=== PATIENT | female | born 2000 | race Two or more races ===

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

== ENCOUNTER 2019-02-06 04:01 | Inpatient (IN) | payer SELFPAY ==
[~2019-02-06] VITALS: Ht 157.5 cm; Wt 72.6 kg
[2019-02-06] VITALS (15 sets, daily range): BP systolic 97–116; BP diastolic 47–68
[2019-02-06 05:06] LABS: Basophils # (auto) 0 uL; Basophils % (auto) 0.1 % (0.0-2.0); Eosinophils # (auto) 0.1 uL; Eosinophils % (auto) 0.9 % (0.0-7.0); Hematocrit 38.3 % (36.0-46.0); Hemoglobin 12.8 g/dL (12.2-16.2); Lymphocytes # (auto) 1.2 uL; Lymphocytes % (auto) 18.4 % (10.0-50.0); Mean Corpuscular Hemoglobin 30.4 pg (28.0-32.0); Mean Corpuscular Hgb Conc. 33.4 g/dL (32.0-36.0); Monocytes # (auto) 0.8 uL; Monocytes % (auto) 12.4 % (0.0-12.0); Neutrophils # (auto) 4.3 uL; Neutrophils % (auto) 68.2 % (37.0-80.0); Platelet Count (auto) 169 10^3/uL (140-450); Red Blood Cells 4.21 10^6/uL (4.0-5.20); Red Cell Distribution Width 13.2 % (11.8-14.3); White Blood Cell 6.3 10^3/uL (4.4-10.8)
[2019-02-06 05:24] LABS: Albumin 2.4 g/dL (3.4-5.0); BUN/Creatinine Ratio 19.5; Calcium 8.6 mg/dL (8.5-10.1); Potassium 3.8 mmol/L (3.5-5.1)
[2019-02-06 05:25] LABS: Bilirubin, Total 0.3 mg/dL (0.2-1.0); Total Protein 6.4 g/dL (6.4-8.2)
[2019-02-06 05:26] LABS: INR 0.86 (0.9-1.15); Partial Thromboplastin Time 26.9 sec (23.64-32.05)
[2019-02-06 05:53] LABS: Urine Bacteria MANY /hpf (None Seen); Urine Blood Negative /uL (Negative); Urine Specific Gravity 1.006 (1.001-1.035); Urine WBC 34 /hpf (0 - 5)
[2019-02-06] MEDS ORDERED: TETRACAINE 1% INJ 2 ML VIAL IJ ONE (09:17)
[2019-02-06] MEDS ORDERED: LACT. RINGERS/OXYTOCIN 20UNITS 1,000 ML IV SCH (10:14)
[2019-02-06] MEDS ORDERED: diphenhdrAMINE HCL 50 MG/1 ML VL IV PRN (10:15)
[2019-02-06] MEDS ORDERED: MORPHINE SULFATE 4 MG/ML SYR/VIAL IV PRN ×2 (10:15→21:30)
[2019-02-06] MEDS ORDERED: ceFAZolin 1GM/50ML 50 ML IV SCH (10:15)
[2019-02-06] MEDS ORDERED: KETOROLAC TROMETH 30 MG/ML 1ML VIAL IV PRN ×2 (10:15)
[2019-02-06] MEDS ORDERED: METOCLOPRAMIDE HCL 5MG/ml INJ 2ml VIAL IV ONE (10:15)
[2019-02-06] MEDS ORDERED: ONDANSETRON HCL 4 MG/2 ML VIAL IV PRN (10:15)
[2019-02-06] MEDS ORDERED: KETOROLAC TROMETH 30 MG/ML 1ML VIAL IV ONE (10:15)
[2019-02-06] MEDS ORDERED: HYDROmorphone HCL 2 MG/ML VL IV PRN ×2 (10:15→21:15)
[2019-02-06] MEDS ORDERED: NALOXONE HCL 0.4 MG/ML VIAL IV PRN (10:15)
--- NOTE | 2019-02-06 11:20 | NUR ---
Post Op for LDRP: Received patient from PACU via bed to room 108. Patient A/A/Ox4, abdominal binder and bilateral SCD's are in place, IV fluids placed on pump and infusing per order, incisional site dressing clean/dry/intact and Bear Catheter to gravity draining clear yellow urine. Incentive Spirometer at bedside and instruction on proper use with return demonstration done by patient. Fundus check done by Rn and Gume PEDRAZA from PACU, firm 1 below umbilicus. Patietn denies pain at this time. Continued care.
[2019-02-06] MEDS: LACTATED RINGER'S 1,000 ML IV SCH (17:00)
[2019-02-06] MEDS: ceFAZolin 1GM/50ML 50 ML IV SCH (17:23)
[2019-02-06 20:02] LABS: Basophils # (auto) 0 uL; Basophils % (auto) 0.2 % (0.0-2.0); Eosinophils # (auto) 0 uL; Eosinophils % (auto) 0.3 % (0.0-7.0); Hematocrit 36.3 % (36.0-46.0); Hemoglobin 12.2 g/dL (12.2-16.2); Lymphocytes # (auto) 1.2 uL; Lymphocytes % (auto) 13.6 % (10.0-50.0); Mean Corpuscular Hemoglobin 30.8 pg (28.0-32.0); Mean Corpuscular Hgb Conc. 33.6 g/dL (32.0-36.0); Mean Corpuscular Volume 91.8 fL (80.0-100.0); Monocytes # (auto) 0.7 uL; Monocytes % (auto) 8.2 % (0.0-12.0); Neutrophils # (auto) 7.1 uL; Neutrophils % (auto) 77.7 % (37.0-80.0); Nucleated Red Blood Cells % 0.1 %; Platelet Count (auto) 142 10^3/uL (140-450); Red Blood Cells 3.96 10^6/uL (4.0-5.20); White Blood Cell 9.1 10^3/uL (4.4-10.8)
--- NOTE | 2019-02-06 22:00 | NUR ---
Ambulation: Patient OOB with standby assistance by RN. Patient ambulated to bathroom with steady gait. [facility]icare teaching provided with returned demonstration by patient. Clean gown provided and bed linen changed. Patient ambulated to bedside chair with steady gait and no distress noted. Pts bello catheter is patent draining yellow urine to gravity. Bello catheter remains in per Dr. Duarte order. Pt tolerating well. No s/s of distress or sob noted. Pt denies any pain at this time. Will continue to monitor.
[2019-02-07] MEDS: ceFAZolin 1GM/50ML 50 ML IV SCH ×2 (00:30→09:12)
[2019-02-07] MEDS: LACTATED RINGER'S 1,000 ML IV SCH (00:35)
[2019-02-07 03:20] VITALS: BP 95/46
[2019-02-07 05:06] LABS: RPR Non Reactive (Non Reactive)
[2019-02-07] MEDS ORDERED: LACTATED RINGER'S 1,000 ML IV SCH (05:31)
--- NOTE | 2019-02-07 05:40 | NUR ---
Bello catheter dc'd Order to discontinue bello catheter. Bello dc'd with clean technique following deflation of balloon, 500ml yellow urine remaining in bello bag upon removal. Patient tolerated well with no complaints of pain. Continue care. Addendum: 02/07/19 at 0542 by Jennifer Power RN 200ml in bello bag not 500ml
[2019-02-07] MEDS ORDERED: HYDROcodone-ACET 5/325MG TAB PO PRN ×2 (05:45)
[2019-02-07 06:45] VITALS: BP 94/45
[2019-02-07] MEDS: SIMETHICONE 80 MG CHEWABLE TABLET PO SCH ×4 (06:52→22:04)
[2019-02-07 07:55] LABS: Basophils # (auto) 0 uL; Basophils % (auto) 0.2 % (0.0-2.0); Eosinophils # (auto) 0.1 uL; Eosinophils % (auto) 1.2 % (0.0-7.0); Hematocrit 36.2 % (36.0-46.0); Hemoglobin 12.4 g/dL (12.2-16.2); Lymphocytes # (auto) 0.8 uL; Lymphocytes % (auto) 9.7 % (10.0-50.0); Mean Corpuscular Hemoglobin 31.2 pg (28.0-32.0); Mean Corpuscular Hgb Conc. 34.3 g/dL (32.0-36.0); Mean Corpuscular Volume 91.1 fL (80.0-100.0); Monocytes # (auto) 0.7 uL; Monocytes % (auto) 8.8 % (0.0-12.0); Neutrophils # (auto) 6.8 uL; Neutrophils % (auto) 80.1 % (37.0-80.0); Platelet Count (auto) 157 10^3/uL (140-450); Red Blood Cells 3.97 10^6/uL (4.0-5.20); White Blood Cell 8.5 10^3/uL (4.4-10.8)
--- NOTE | 2019-02-07 09:50 | NUR ---
Ambulation: Patient OOB with no assistance by RN. Patient ambulated to bathroom with steady gait. Patient able to void without difficulty. Pericare teaching provided with returned demonstration by patient. Patient ambulated back to bed with steady gait and no distress noted.
[2019-02-07] MEDS: DOCUSATE SOD 100 MG CAP PO SCH ×2 (10:01→22:04)
[2019-02-07] MEDS: DOCUSATE CALCIUM 240 MG CAP PO SCH (10:01)
[2019-02-07 11:00] VITALS: BP 105/73
[2019-02-07] MEDS: IBUPROFEN 800 MG TAB PO PRN ×2 (14:14→22:04)
[2019-02-07 15:00] VITALS: BP 104/59
--- NOTE | 2019-02-07 19:00 | NUR ---
PT up ambulating in hallway, steady gait noted. no acute distress at this time
[2019-02-07 19:30] VITALS: BP 107/62
[2019-02-07] MEDS ORDERED: PREN-96 PO (21:34)
[2019-02-07 22:48] VITALS: BP 106/41
[2019-02-08 02:56] VITALS: BP 109/69
[2019-02-08] MEDS: SIMETHICONE 80 MG CHEWABLE TABLET PO SCH ×4 (05:53→22:20)
[2019-02-08 06:50] VITALS: BP 102/73
[2019-02-08] MEDS: DOCUSATE SOD 100 MG CAP PO SCH ×2 (09:37→22:20)
[2019-02-08] MEDS: DOCUSATE CALCIUM 240 MG CAP PO SCH (09:37)
[2019-02-08 11:00] VITALS: BP 118/65
[2019-02-08] MEDS: IBUPROFEN 800 MG TAB PO PRN ×2 (11:52→22:20)
[2019-02-08 15:00] VITALS: BP 119/84
[2019-02-08 19:00] VITALS: BP 108/66
[2019-02-08 22:53] VITALS: BP 121/67
[2019-02-09 02:46] VITALS: BP 115/58
[2019-02-09] MEDS: SIMETHICONE 80 MG CHEWABLE TABLET PO SCH (05:49)
[2019-02-09 07:00] VITALS: BP 115/65
[2019-02-09] MEDS: DOCUSATE CALCIUM 240 MG CAP PO SCH (09:39)
[2019-02-09] MEDS: DOCUSATE SOD 100 MG CAP PO SCH (09:39)
--- NOTE | 2019-02-09 09:45 | NUR ---
BETH ZHANG CARE INFORMATION ASSOCIATE TALK TO THE PATIENT AND CLEARED HER TO GO HOME.
--- NOTE | 2019-02-09 10:50 | NUR ---
Discharge: Discharge instructions given to mother of baby as ordered with station examiner. Copies of and hearing screening, along with vaccination record given to mother. Mother encouraged to follow up with Edging Supervisor of choice and to give envelope with infants information to fuel tank sealer and tester at 1st office visit. All questions and concerns addressed. Mother of baby verbalized understanding and agreed to comply. Mother of baby encouraged to prepare for departure and notify RN ready to leave room for ID band removal/verification and car seat check.
--- NOTE | 2019-02-09 10:50 | NUR ---
Discharge: Discharge instructions given as ordered via director hematology. Pt encouraged to follow up with NATIONAL SALES REPRESENTATIVE as instructed. All questions and concerns addressed. Patient verbalized understanding. Medication reconciliation completed and copy given to patient. All required/requested vaccines given and copies of vaccinations given to patient. Patient encouraged to prepare to depart unit.
--- NOTE | 2019-02-09 11:08 | NUR ---
Discharge: Patient taken to vehicle via wheelchair with all personal belongings, accompanied by staff and family member. No distress noted at time of departure, no adverse changes in status since initial assessment.
--- NOTE | 2019-02-09 11:20 | NUR ---
Received referral to see pt due to scoring low on the depression scale. Pt speaks only [place] so an in tube conversion technician was used ( Falguni ) was used. The mother states she is not depressed and does not want to hurt herself or the baby. The Pt states she lives in [place] with her and other child. Pt and family just located there. Pt is very open about the conversation. Pt is a female at 39 weeks [place] 9 out of ten and weighed 7 pounds. Pt stated there are no other issues.
== END 2019-02-09 11:08 | disposition home or self-care (01) | DRG 788 ==
LOC: LDRP 04:01
PROVIDERS: ADMIT Specialist; ATTEND Specialist
PROC: 10D00Z1 Extraction of Products of Conception, Low, Open Approach (ICD-10-PCS; principal; 2019-02-06 09:16)
DX: O34.211 Maternal care for low transverse scar from previous cesarean delivery (principal); Z37.0 Single live birth; Z3A.39 39 weeks gestation of pregnancy
CPT/HCPCS: 36415; 51702; 59025; 80053; 81001; 84112; 85025; 85610; 85730; 86592; 86850; 86870; 86900; 86901; 94762; 96361; 96365; 96375; G0378; J0690; J1885